=== PATIENT | male | born 1950 ===

== ENCOUNTER 2021-09-06 08:34 | Outpatient (CLI) | payer BC, MEDICARE, SELFPAY ==
[2021-09-06 09:02] LABS: Basophils Absolute Auto 0.03 K/uL (0.00-0.30); Basophils Percent Auto 0.4 % (0.0-3.0); Eosinophils Absolute Auto 0.23 K/uL (0.00-0.50); Eosinophils Percent Auto 3.1 % (0.0-7.0); Hematocrit 45.7 % (37.0-53.0); Hemoglobin* 15.6 gm/dL (13.5-17.5); Lymphocytes Percent Auto 24.5 % (20-44); Mean Corpuscular HGB Conc 34 gm/dL (32-36); Mean Corpuscular Hemoglobin 31 pg (26-34); Mean Corpuscular Volume 89 fL (80-100); Monocytes Percent Auto 6.8 % (0.0-11.0); Neutrophils Absolute Auto 4.79 K/uL (1.7-7.0); Neutrophils Percent Auto 65.2 % (42.0-72.0); Platelet Count* 194 K/uL (140-440); Red Blood Count 5.11 m/uL (4.30-5.90); White Blood Count* 7.35 K/uL (4.50-11.00)
[2021-09-06 09:04] LABS: Slide Review Reflex No
[2021-09-06 09:06] LABS: Blood Urea Nitrogen* 15 mg/dl (8-26); Carbon Dioxide* 25 mmol/L (20-32); Chloride* 105 mmol/L (98-109); Creatinine* 0.9 mg/dl (0.6-1.3); Potassium* 3.9 mmol/L (3.5-4.9); Sodium* 142 mmol/L (138-146)
[2021-09-06 09:07] LABS: Glucose* 111 mg/dl (60-115); Ionized Calcium* 1.16 mmol/L (1.11-1.33)
[2021-09-06 09:09] LABS: Appearance Urine Clear (Clear); Bilirubin Urine Negative (Negative); Blood Urine Negative (Negative); Color Urine Yellow (Yellow); Glucose Urine Negative (Negative); Ketones Urine Negative (Negative); Leukocyte Esterase Urine Negative (Negative); Nitrite Urine Negative (Negative); Protein Urine Negative (Negative); Specific Gravity Urine 1.025 (1.000-1.030); Urobilinogen Urine 0.2 (0.2-1.0); pH Urine 5.5 (5.0-8.5)
[2021-09-06 13:58] LABS: Albumin* 4.1 g/dL (3.3-5.0)
[2021-09-06 14:00] LABS: Cholesterol* 213 mg/dL (90-199); Total Protein* 6.5 g/dL (6.0-8.3)
[2021-09-06 14:01] LABS: Alanine Aminotransferase* 24 U/L (4-50); Alkaline Phosphatase* 87 U/L (40-150); Aspartate Amino Transferase* 23 U/L (12-35); Bilirubin Direct* 0.4 mg/dL (0.0-0.5); Bilirubin Total* 0.7 mg/dL (0.1-1.5); HDL Cholesterol* 39 mg/dL (>=40); LDL Cholesterol Calculated 116 mg/dL (<100); Triglycerides* 291 mg/dL (40-149)
[2021-09-06 14:31] LABS: PSA Screen* 1.59 ng/mL (0.10-4.00)
== END 2021-09-06 08:35 | disposition home or self-care (01) ==
PROVIDERS: PCP Family Medicine; Visit Provider Family Medicine
DX: Z00.00 Encounter for general adult medical examination without abnormal findings (principal); H93.13 Tinnitus, bilateral; R39.11 Hesitancy of micturition; R68.89 Other general symptoms and signs; Z76.89 Persons encountering health services in other specified circumstances; Z12.5 Encounter for screening for malignant neoplasm of prostate
CPT/HCPCS: 80061; 80076; 81003; 84153; 85025

== ENCOUNTER 2021-12-01 16:15 | Outpatient (CLI) | payer BC, SELFPAY ==
[2021-12-01 22:51] LABS: Lyme Disease Screen IgG NEGATIVE (Negative); Lyme Disease Screen IgM NEGATIVE (Negative)
== END 2021-12-01 16:16 | disposition home or self-care (01) ==
LOC: LKVREF 16:16
PROVIDERS: PCP Family Medicine; Visit Provider Family Medicine
DX: Z11.9 Encounter for screening for infectious and parasitic diseases, unspecified (principal); W57.XXXA Bitten or stung by nonvenomous insect and other nonvenomous arthropods, initial encounter
CPT/HCPCS: 86618

== ENCOUNTER 2022-07-24 19:46 | Outpatient (CLI) | payer BC, SELFPAY ==
--- NOTE | 2022-08-03 14:29 | W.PM.SLEEP ---
Sleep Study Details Details Interpreting Provider: Joel Date of Sleep Study: 07/24/22 Sleep Study Details: STUDY TYPE:? Home unattended ? BMI:? 29.5 ORDERING PROVIDER:Flako Maldonado INDICATION:? Concerns about sleep apnea ? SLEEP SUMMARY:? 372 minutes monitored RESPIRATORY SUMMARY:? AHI 7.1 Supine AHI 15.4, left lateral 4.3, right lateral 3.3 Low oxygen 85 7.6% of study oxygen less than 90% Snoring 0% PERIODIC LIMB MOVEMENTS OF SLEEP:? Not recorded during home study CARDIAC:? Range 51-86, mean 56.9 IMPRESSION:? Mild obstructive sleep apnea with supine position dependency RECOMMENDATION: Positional therapy with avoidance of supine sleep, CPAP AutoSet 4-17 or dental appliance would all be appropriate therapies.
== END 2022-07-24 19:47 | disposition home or self-care (01) ==
LOC: SLEEP 19:46
PROVIDERS: PCP Family Medicine; Visit Provider Otolaryngology
DX: G47.33 Obstructive sleep apnea (adult) (pediatric) (principal)
CPT/HCPCS: 95806

== ENCOUNTER 2023-07-09 08:26 | Outpatient (CLI) | payer BC, SELFPAY | END 2023-07-09 08:27 | disposition home or self-care (01) | LOC: NFLDREF 07-27 08:42 | PROVIDERS: PCP Family Medicine; Referring Provider Family Medicine; Visit Provider Family Medicine | DX: Z00.00 Encounter for general adult medical examination without abnormal findings (principal); E78.1 Pure hyperglyceridemia; N40.0 Benign prostatic hyperplasia without lower urinary tract symptoms; G62.9 Polyneuropathy, unspecified; M25.519 Pain in unspecified shoulder | CPT/HCPCS: 80053; 80061; 82607; 84443; G0103 ==

== ENCOUNTER 2024-10-28 12:56 | Outpatient (CLI) | payer BC, SELFPAY | END 2024-10-28 12:57 | disposition home or self-care (01) | PROVIDERS: PCP Family Medicine; Visit Provider Family Medicine | DX: Z00.00 Encounter for general adult medical examination without abnormal findings (principal); N40.0 Benign prostatic hyperplasia without lower urinary tract symptoms; N20.0 Calculus of kidney; M54.9 Dorsalgia, unspecified | CPT/HCPCS: 80053; 80061; G0103 ==

== ENCOUNTER 2024-12-12 06:24 | Outpatient (CLI) | payer BC, SELFPAY ==
--- NOTE | 2024-12-12 08:13 | P.ANES_ITS ---
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
--- NOTE | 2024-12-12 08:13 | W.ANESCHARGE ---
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
== END 2024-12-12 06:25 | disposition home or self-care (01) ==
LOC: OP CLINIC 06:24
PROVIDERS: PCP Family Medicine; Visit Provider Surgery
DX: Z12.11 Encounter for screening for malignant neoplasm of colon (principal); Z86.0100 Personal history of colon polyps, unspecified; K57.30 Diverticulosis of large intestine without perforation or abscess without bleeding; K21.9 Gastro-esophageal reflux disease without esophagitis; K44.9 Diaphragmatic hernia without obstruction or gangrene
CPT/HCPCS: 00813; 43239; 45378; 88305; 99100; J2704; J3490

== ENCOUNTER 2025-02-08 20:04 | Outpatient (CLI) | payer BC, SELFPAY ==
--- NOTE | 2025-02-25 13:29 | W.PM.SLEEP ---
Sleep Study Details Details Interpreting Provider: Bebeto Date of Sleep Study: 02/08/25 Sleep Study Details: STUDY TYPE:? Hospital-based attended ? BMI:? 32.4 ORDERING PROVIDER:? Andreia INDICATION:? Concern for sleep apnea ? SLEEP SUMMARY:? 343 minutes sleep time RESPIRATORY SUMMARY:? 4.9 minutes oxygen between 80 and 88% AHI is 3.8 per CMS criteria, 7.5 per rule 1A Supine AHI 19 0.6 CM as, 30 per rule 1A. No supine REM sleep was seen PERIODIC LIMB MOVEMENTS OF SLEEP:? None CARDIAC:? Awake 65, asleep 59. Few PVCs were noted IMPRESSION:? This study demonstrates obstructive sleep apnea in the supine position. Per CMS criteria the overall study is within normal limits. RECOMMENDATION: Avoid supine sleep.
== END 2025-02-08 20:05 | disposition home or self-care (01) ==
LOC: SLEEP 20:05
PROVIDERS: PCP Family Medicine; Visit Provider Family Medicine
DX: G47.33 Obstructive sleep apnea (adult) (pediatric) (principal)
CPT/HCPCS: 95810